=== PATIENT | female | born 1940 | race Asian ===

== ENCOUNTER 2020-02-27 07:00 | Outpatient (CLI) | payer MEDICARE, OTHER | END 2020-02-27 23:59 | disposition home or self-care (01) | LOC: LAB 07:00 | PROVIDERS: ATTEND Ophthalmology | DX: Z01.812 Encounter for preprocedural laboratory examination (principal); Z20.828 Contact with and (suspected) exposure to other viral communicable diseases ==

== ENCOUNTER 2020-02-29 06:19 | Day surgery (SDC) | payer MEDICARE, OTHER ==
[~2020-02-29 06:19] MED LIST: BALANCED SALT IRRIG SOLN COMB1 500 ML, EPINEPHRINE-PF 1:1000 0.5 MG IO ONE
[2020-02-29] MEDS ORDERED: PROPOFOL 200 MG/20 ML BOTTLE IV ONE (06:20)
[2020-02-29] MEDS ORDERED: LIDOCAINE-MPF 2% 5 ML VIAL MC ONE (06:20)
[2020-02-29] MEDS ORDERED: KETOROLAC 0.5% OPHT DROP 3 ML BOTTLE ONE (06:45)
[2020-02-29] MEDS ORDERED: PHENYLEPHRINE 2.5% OPHT DROP 2 ML BOTTLE ONE (06:46)
[2020-02-29] MEDS ORDERED: TROPICAMIDE 1% OPHT DROP 3 ML BOTTLE ONE (06:46)
[2020-02-29] MEDS ORDERED: CIPROFLOXACIN 0.3% OPHT DROP 2.5 ML BOTTLE ONE (06:46)
[2020-02-29] MEDS ORDERED: CYCLOPENTOLATE 1% OPHT DROP 2 ML BOTTLE ONE (06:46)
[2020-02-29] MEDS ORDERED: NEO/POLYMYX B/DEXAME OPHT OINT 3.5 GM TUBE ONE (07:15)
[2020-02-29] MEDS ORDERED: MOXIFLOXACIN HCL 3 ML OPHT DROPS ONE (07:15)
[2020-02-29] MEDS ORDERED: LIDOCAINE-MPF 2% 5 ML VIAL ONE (07:15)
[2020-02-29] MEDS ORDERED: TIMOLOL MALEATE 0.5% OPHT DROP 5 ML BOTTLE ONE (07:15)
[2020-02-29] MEDS ORDERED: BALANCED SALT IRRIG SOLN COMB2 15 ML IRRIG.SOLN ONE (07:16)
[2020-02-29] MEDS ORDERED: ACETYLCHOLINE CHLORIDE 1% OPHT 1 EA KIT ONE (07:16)
[2020-02-29] MEDS ORDERED: BUPIVACAINE PF 0.5% 30 ML VIAL ONE (07:16)
[2020-02-29] MEDS ORDERED: TRYPAN BLUE 0.5 ML DISP.SYRIN ONE (07:16)
[2020-02-29] MEDS ORDERED: HYALURONIDASE,OVINE 200 UNITS/ML VIAL ONE (07:17)
[2020-02-29] MEDS ORDERED: FENTANYL CITRATE 100 MCG/2 ML AMPUL ONE (07:20)
[2020-02-29] MEDS ORDERED: BALANCED SALT IRRIG SOLN COMB1 500 ML ONE (08:30)
== END 2020-02-29 10:10 | disposition home or self-care (01) ==
LOC: DS 06:19
PROVIDERS: ATTEND Ophthalmology
DX: H25.89 Other age-related cataract (principal); I10 Essential (primary) hypertension; E78.00 Pure hypercholesterolemia, unspecified; I25.10 Atherosclerotic heart disease of native coronary artery without angina pectoris; Z79.899 Other long term (current) drug therapy; Z98.890 Other specified postprocedural states; Z86.73 Personal history of transient ischemic attack (TIA), and cerebral infarction without residual deficits
CPT/HCPCS: 71045; A4663; J0171; J3010; J3471; J3490; J7120; Q9968; V2632